=== PATIENT | female | born 1980 | race Caucasian/White ===

== ENCOUNTER → 2017-12-07 10:16 | Outpatient (CLI) | payer BC, SELFPAY ==
--- NOTE | 2017-12-07 10:23 | NM_ITS ---
NM hepatobiliary w pharm HISTORY: ITS.REASON: RUQ PAIN ORDERING PHYSICIAN: Luann Castro PATIENT AGE: 37 years COMPARISON: None DOSE: 8.22 mCi technetium Choletec. The patient is reportedly allergic to soy therefore, it should or was not given as it contains soy products. Patient was given whole milk for fatty meal. There was pain reported following drinking the milk FINDINGS: Homogeneous activity is present within the hepatic parenchyma. Activity is present in the gallbladder by 50 minutes. Activity is present in the small bowel by 10 minutes. The gallbladder ejection fraction is calculated to be 37% which is at the lower limits of normal The patient did report pain after ingesting the fatty meal. IMPRESSION: 1. No evidence of common or cystic duct obstruction. 2. Delayed visualization of the gallbladder which may be seen with chronic inflammatory changes of the cystic duct 3. Gallbladder ejection fraction at lower limits of normal. There was pain reported with the fatty meal
== END ==
PROVIDERS: PCP Family Medicine; Visit Provider Nurse Practitioner Acute Care
DX: R10.11 Right upper quadrant pain (principal)
CPT/HCPCS: 78227; A9537